=== PATIENT | male | born 1965 | race Caucasian/White ===

== ENCOUNTER → 2016-11-09 10:04 | Outpatient (CLI) | payer OTHER | END | disposition home or self-care (01) | LOC: D.RAD 10:04 | DX: Z02.71 Encounter for disability determination (principal) ==

== ENCOUNTER 2019-02-17 10:39 | Day surgery (SDC) | payer MEDICAID ==
[~2019-02-17] VITALS: Ht 185.4 cm; Wt 113.6 kg
--- NOTE | 2019-02-17 10:50 | NUR ---
PT'S PEDAL PULSES +2 AND EQUAL BILATERALLY. RIGHT PEDAL PULSE MARKED WITH INK AT THIS TIME.
--- NOTE | 2019-02-17 11:00 | NUR ---
PT'S RIGHT GREAT TOE SOAKED IN BETADINE AT THIS TIME.
[2019-02-17 11:06] LABS: BASOPHILS 0.3 % (0-2); EOSINOPHILS 3.7 % (0-7); HEMATOCRIT 46.1 % (42.0-54.0); HEMOGLOBIN 15.8 g/dL (13.5-17.5); IMMATURE GRANULOCYTES 0.2 % (0-5); LYMPHOCYTES 35.2 % (15-50); MCH 31.7 pg (26.0-34.0); MCHC 34.3 g/dL (31.0-37.0); MCV 92.6 fL (80.0-100.0); MEAN PLATELET VOLUME 10.8 fL (7.4-10.4); NEUTROPHILS 53.6 % (40-80); PLATELET COUNT 163 10x3/uL (130-400); RBC 4.98 10x6/uL (4.20-6.10)
[2019-02-17 11:30] LABS: ALBUMIN 3.7 g/dL (3.4-5.0); ALKALINE PHOSPHATASE 105 U/L (46-116); ALT (SGPT) 42 U/L (10-68); BILIRUBIN - TOTAL 0.28 mg/dL (0.2-1.3); CALC OSMOLALITY 276 mosm/kg (275-300); CALCIUM 8.9 mg/dL (8.5-10.1); CARBON DIOXIDE 21.4 mmol/L (21.0-32.0); CHLORIDE - SERUM 104 mmol/L (98-107); CREATININE - SERUM 0.9 mg/dL (0.6-1.3); GLUCOSE 90 mg/dL (74-106); POTASSIUM - SERUM 3.6 mmol/L (3.5-5.1); PROTEIN - SERUM 7.7 g/dL (6.4-8.2); SODIUM 139 mmol/L (136-145); UREA NITROGEN 10 mg/dL (7-18); eGFR NON AFRICAN AMERICAN > 90 mL/min (90-120)
--- NOTE | 2019-02-17 11:30 | NUR ---
WRAPPED PT'S RIGHT GREAT TOE WITH KERLIX. PT TOLERATED WELL.
--- NOTE | 2019-02-17 11:40 | NUR ---
SURGERY CONSENT FORMS SIGNED BY PATIENT AT THIS TIME.
[2019-02-17 13:36] VITALS: BP 164/94; Ht 185.4 cm; Wt 113.6 kg
--- NOTE | 2019-02-17 13:42 | NUR ---
TO OR VIA BED
[2019-02-17 15:26] VITALS: BP 151/93
--- NOTE | 2019-02-17 15:29 | NUR ---
BACK FROM PACU VIA BED.DRESSING RIGHT FOOT CLEAN AND DRY AND INTACT. DENIES PAIN AT PRESENT.CALL LIGHT IN REACH
[2019-02-17] MEDS ORDERED: HYDROCODON-ACE1 EA10 PO (17:09)
--- NOTE | 2019-02-17 17:18 | NUR ---
ATE SANDIWICH TRAY WITHOUT NAUSEA. STILL DENIES PAIN. DRESSING TO FOOT CLEAN AND DRY. IV DCD WITH CATH TIP INTACT. HAS VOIDED 400CC OF CONCENTRATED URINE IN URINAL. WANTS TO DC HOME
--- NOTE | 2019-02-17 17:30 | NUR ---
DISCHARGE INSTRUCTIONS,STATES UNDERSTANDING.
--- NOTE | 2019-02-17 17:44 | NUR ---
LEFT UNIT VIA WHEELCHAR FOR TRANSPORT HOME
--- NOTE | 2019-02-18 14:17 | OP ---
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 PROCEDURE: Completion of amputation of the MTP joint, right great toe. SURGEON: Nataliya Kern MD ANESTHESIA: General. INTRAOPERATIVE COMPLICATIONS: None. SUMMARY OF PATHOLOGIC FINDINGS: Consistent with the preoperative diagnosis, the patient had a very small skin bridge with a dusky hue of the distal phalanx. Furthermore, the proximal phalanx of the toe was comminuted into about 15 pieces. The wound was laden with grass and as per preoperative plan, the patient's toe was cut off at the MTP joint by disarticulation. OPERATIVE SUMMARY IN DETAIL: After obtaining the appropriate preoperative orthopedic surgery consent as well as anesthetic consultation, evaluation and clearance, the patient was brought to the operating room and placed on the operating table in supine position. After general laryngeal mask airway was administered, tourniquet was placed on the proximal aspect of the right lower extremity. Right lower extremity was prepped and draped in routine sterile fashion. The leg was elevated and exsanguinated, tourniquet inflated to 350 mmHg. A fishmouth incision was made of the residual skin. At this point, the small skin island was incised and the toe simply was disconnected at this point. Copious irrigation was done to remove all foreign body. Further removal of bone was done back to the MTP joint. Skin was then trimmed and again all foreign bodies were removed back to a very good healthy tissue. Wound was then closed with 4-0 Prolene in interrupted fashion. Sterile dressings were applied. Tourniquet was deflated. The patient was awakened, taken to the recovery room in stable condition. All final needle and sponge counts were correct. TRANSINT:[id number] Voice Confirmation ID: [id number] DOCUMENT ID: [id number] NATALIYA KERN MD at 1417 CC: [id number] DICTATION DATE: 02/17/19 1459 REPORTER: 02/17/19 1912 DIS IN 02/17/19 [facility] [address] [place] [address]
== END 2019-02-17 17:46 | disposition home or self-care (01) ==
LOC: OBSVTIME → D.OPS 10:39 → D.ER 10:39 → EDSTATUS 11:17 → D.MS 11:37 → OBSVTIME 11:37 → D.ER 11:37 → D.MS 17:46 → D.OPS 17:46 → D.MS 17:46
PROVIDERS: Emergency Medicine; ATTEND Orthopaedic Surgery
DX: S91.111A Laceration without foreign body of right great toe without damage to nail, initial encounter (principal); F17.200 Nicotine dependence, unspecified, uncomplicated

== ENCOUNTER 2019-02-22 12:00 | Inpatient (IN) | payer MEDICAID ==
[~2019-02-22] VITALS: Ht 185.4 cm; Wt 113.4 kg
[~2019-02-22 12:00] MED LIST: HYDROCODON-ACE1 EA10 PO
[2019-02-22 12:09] LABS: BASOPHILS 0.4 % (0-2); EOSINOPHILS 4.3 % (0-7); HEMATOCRIT 45.5 % (42.0-54.0); HEMOGLOBIN 15.6 g/dL (13.5-17.5); MCH 31.8 pg (26.0-34.0); MCHC 34.3 g/dL (31.0-37.0); MCV 92.7 fL (80.0-100.0); MEAN PLATELET VOLUME 9.9 fL (7.4-10.4); MONOCYTES 8.3 % (2-11); PLATELET COUNT 161 10x3/uL (130-400); RBC 4.91 10x6/uL (4.20-6.10); RDW 13.9 % (11.5-14.5); WBC 5.2 10x3/uL (4.8-10.8)
[2019-02-22 12:16] LABS: CALC OSMOLALITY 270 mosm/kg (275-300); CALCIUM 9.1 mg/dL (8.5-10.1); CARBON DIOXIDE 31.7 mmol/L (21.0-32.0); CHLORIDE - SERUM 99 mmol/L (98-107); CREATININE - SERUM 0.8 mg/dL (0.6-1.3); GLUCOSE 100 mg/dL (74-106); POTASSIUM - SERUM 4.8 mmol/L (3.5-5.1); SODIUM 136 mmol/L (136-145); UREA NITROGEN 10 mg/dL (7-18); eGFR NON AFRICAN AMERICAN > 90 mL/min (90-120)
[2019-02-22 14:17] VITALS: BP 168/103; BMI 33.0
--- NOTE | 2019-02-22 14:45 | NUR ---
PT ARRIVED TO FLOOR VIA STRETCHER. O2 81% ON RA. 2L NC APPLIED AND PT O2 WENT UP TO 95%. BP AND HR WNL. PT DROWSY BUT WAKES TO VERBAL STIMULI.
--- NOTE | 2019-02-22 15:41 | NUR ---
PATIENT FEET VERY DIRTY WELL HANDS AND FINGERNAILS
--- NOTE | 2019-02-22 16:45 | NUR ---
PT ARRIVED TO FLOOR VIA STRETCHER. O2 81% ON RA. 2L NC APPLIED AND PT O2 WENT UP TO 95%. BP AND HR WNL. PT DROWSY BUT WAKES TO VERBAL STIMULI. =
[2019-02-22 16:59] VITALS: BP 154/98; BMI 33.0
--- NOTE | 2019-02-22 17:30 | NUR ---
PT SITTING UP IN BED EATING SUPPER. PT URINATED 400ML INTO URINAL. DENIES ANY NEEDS AT THIS TIME. WILL CONT TO FOLLOW POC
--- NOTE | 2019-02-22 19:45 | NUR ---
RECEIVED PT. A&O X4. PROVIDED PAIN MEDICATION PER REQUEST. DENIES FURTHER NEEDS AT THIS TIME. NO S/S OF DISTRESS NOTED. WILL CPOC.
[2019-02-22 20:00] VITALS: BP 115/84
[2019-02-23] VITALS: BP 147/98
[2019-02-23 03:52] VITALS: BP 152/89
[2019-02-23 07:27] VITALS: BP 119/82
--- NOTE | 2019-02-23 08:00 | NUR ---
PT RESTING IN BED, VSS AND WNL. SHIFT ASSESSMENT PERFORMED. DENIES ANY NEEDS AT THIS TIME, CALL LIGHT WITHIN REACH, WILL CONT TO FOLLOW POC
[2019-02-23 11:54] VITALS: BP 132/85
--- NOTE | 2019-02-23 12:00 | NUR ---
PT RESTING IN BED, DENIES ANY NEEDS AT THIS TIME. WILL CONT TO FOLLOW POC
[2019-02-23 14:25] LABS: C-REACTIVE PROTEIN 3.5 mg/dL (0.0-0.9); CALC OSMOLALITY 268 mosm/kg (275-300); CALCIUM 8.9 mg/dL (8.5-10.1); CARBON DIOXIDE 32.9 mmol/L (21.0-32.0); CHLORIDE - SERUM 97 mmol/L (98-107); CREATININE - SERUM 0.9 mg/dL (0.6-1.3); GLUCOSE 75 mg/dL (74-106); POTASSIUM - SERUM 4.2 mmol/L (3.5-5.1); SODIUM 135 mmol/L (136-145); eGFR NON AFRICAN AMERICAN > 90 mL/min (90-120)
[2019-02-23 14:28] LABS: UREA NITROGEN 13 mg/dL (7-18)
[2019-02-23 15:17] LABS: ERYTHROCYTE SEDIMENTATION RATE 15 mm/hr (0-20)
[2019-02-23 15:18] LABS: HEMATOCRIT 45.4 % (42.0-54.0); HEMOGLOBIN 15.2 g/dL (13.5-17.5); MCH 31.3 pg (26.0-34.0); MCHC 33.5 g/dL (31.0-37.0); MCV 93.6 fL (80.0-100.0); MEAN PLATELET VOLUME 10.8 fL (7.4-10.4); PLATELET COUNT 176 10x3/uL (130-400); RBC 4.85 10x6/uL (4.20-6.10); RDW 13.7 % (11.5-14.5); WBC 5.1 10x3/uL (4.8-10.8)
--- NOTE | 2019-02-23 17:07 | MORECARE ---
CASE MANAGEMENT DISCHARGE SUMMARY PATIENT: SARAH BASSETT UNIT: [id number] ADM DATE: 02/22/19 AGE: 53 : 67 SEX: M ROOM/BED: D.1213 AUTHOR: FLOR VAZQUEZ PHYSICIAN: REFERRING PHYSICIAN: NATALIYA KERN MD DATE OF SERVICE: 02/23/19 Discharge Plan Patient Name: SARAH BASSETT [facility] [facility] 1965 Planned Disposition: Home with Home Health and Infusion Serv Anticipated Discharge Date: Discharge Date: Expected LOS: Initial Reviewer: [email or web address] Initial Review Date: 02/23/2019 Generated: 02/23/19 6:07 pm External Providers External Provider: OTHER-OTHER Next Contact Date: Service Request Date: Service Type: Resolution: Reviewer: Comments: External Provider: [facility] Next Contact Date: Service Request Date: Service Type: Resolution: Reviewer: Comments: Patient Name: SARAH BASSETT Page [phone] at 1707 All edits/amendments must be made on the electronic document DICTATION DATE: 02/23/191706 ZONING ADMINISTRATOR: DOMINGO 02/23/191706 RPT#: [id number] DC DATE: STATUS: ADM IN [facility] [address] [place] [address] END OF REPORT
[2019-02-23 17:13] VITALS: BP 116/80
--- NOTE | 2019-02-23 17:16 | MORECARE ---
CASE MANAGEMENT DISCHARGE SUMMARY PATIENT: SARAH BASSETT UNIT: [id number] ADM DATE: 02/22/19 AGE: 53 : 67 SEX: M ROOM/BED: D.1213 AUTHOR: FLOR VAZQUEZ PHYSICIAN: REFERRING PHYSICIAN: NATALIYA KERN MD DATE OF SERVICE: 02/23/19 Discharge Plan Patient Name: SARAH BASSETT [facility] [facility] 1965 Planned Disposition: Home with Home Health and Infusion Serv Anticipated Discharge Date: Discharge Date: Expected LOS: Initial Reviewer: [email or web address] Initial Review Date: 02/23/2019 Generated: 02/23/19 6:16 pm DCPIA - Discharge Planning Initial Assessment Updated by [email or web address]: Domonique Crocker on 02/23/19 5:08 pm * Is the patient Alert and Oriented? Yes * How many steps to enter\exit or inside your home? * PCP NO PCP * Pharmacy [facility] * Preadmission Environment Home Alone * ADLs Independent * Equipment Crutch * Other Equipment VITALIY , WALKER * List name and contact numbers for known caregivers / representatives who currently or will assist patient after discharge: ANMOL BASSETT - [employer] - [phone] * Verbal permission to speak to the caregivers and representatives has been obtained from the patient. Yes * Community resources currently utilized None * Additional services required to return to the preadmission environment? No * Can the patient safely return to the preadmission environment? Yes * Has this patient been hospitalized within the prior 30 days at any hospital? No Last DP export: 02/23/19 4:07 pm Patient Name: SARAH BASSETT Page 12836 at 1716 All edits/amendments must be made on the electronic document DICTATION DATE: 02/23/191714 CIGAR PACKER AND PICKER: DOMINGO 02/23/191714 RPT#: [id number] DC DATE: STATUS: ADM IN [facility] [address] [place] [address] END OF REPORT
--- NOTE | 2019-02-23 17:32 | MORECARE ---
CASE MANAGEMENT DISCHARGE SUMMARY PATIENT: SARAH BASSETT UNIT: [id number] ADM DATE: 02/22/19 AGE: 53 : 67 SEX: M ROOM/BED: D.1213 AUTHOR: GEORGE,DOC PHYSICIAN: REFERRING PHYSICIAN: NATALIYA KERN MD DATE OF SERVICE: 02/23/19 Discharge Plan Patient Name: SARAH BASSETT Facility: [facility]:[place] : 1965 Planned Disposition: Home with Home Health and Infusion Serv Anticipated Discharge Date: Discharge Date: Expected LOS: Initial Reviewer: [email or web address] Initial Review Date: 02/23/2019 Generated: 02/23/19 6:32 pm Comments DCP- Discharge Planning Updated by [email or web address]: Domonique Crocker on 02/23/19 4:[address] Patient Name: SARAH BASSETT Admission Status: Elective Accout number: [id number] Admission Date: 02-22-2019 : 1965 Admission Diagnosis: Attending: NATALIYA KERN Current LOS: 1 Anticipated DC Date: Planned Disposition: Home with Home Health and Infusion Serv Primary Insurance: [place] [employer]IVATE OPTIONS [employer] Discharge Planning Comments: CM met with patient at bedside after explaining CM role and obtaining verbal consent. Patient lives at home alone and plans to return to his neighbors home upon discharge. Patient feels this would be a safe discharge. CM discussed availability / needs of home health and medical equipment. Patient states he has crutches in his truck and a walker in garage. Patient stated he lives in his shop that is why he will be staying at neighbors home because of cleanliness. Patient states his neighbors address of [address] [place] [address] in [place]. CM explained that he will have IV antibiotics at home and home health will be coming for dressing changes. CM gave patient [employer] form for and [employer]. CM contacted [facility] [phone] fax [phone] and they contacted CM and stated zero copay for antibiotics. Patient is contacting family on decision for Home Health. [employer] left with patient. [place] will coming to see patient later for teaching. CM has faxed information to [employer]. CM will continue to follow and assist as needed with discharge planning / needs. Office Manager: Domonique Crocker DCPIA - Discharge Planning Initial Assessment Updated by [email or web address]: Domonique Crocker on 02/23/19 5:08 pm * Is the patient Alert and Oriented? Yes * How many steps to enter\exit or inside your home? * PCP NO PCP * Pharmacy [facility] * Preadmission Environment Home Alone * ADLs Independent * Equipment Crutch * Other Equipment VITALIY , WALKER * List name and contact numbers for known caregivers / representatives who currently or will assist patient after discharge: ANMOL BASSETT - [facility] [phone] * Verbal permission to speak to the caregivers and representatives has been obtained from the patient. Yes * Community resources currently utilized None * Additional services required to return to the preadmission environment? No * Can the patient safely return to the preadmission environment? Yes * Has this patient been hospitalized within the prior 30 days at any hospital? No Last DP export: 02/23/19 4:16 pm Patient Name: SARAH BASSETT Page 67711 at 1732 All edits/amendments must be made on the electronic document DICTATION DATE: 02/23/191731 REGIONAL VICE PRESIDENT SURGICAL SALES: DOMINGO 02/23/191731 RPT#: [id number] [place] DATE: STATUS: ADM IN [facility] [address] [place] [address] END OF REPORT
--- NOTE | 2019-02-23 18:17 | NUR ---
PT RESTING IN BED, DENIES ANY NEEDS AT THIS TIME, WILL CONT TO FOLLOW POC
[2019-02-23 20:01] VITALS: BP 149/69
[2019-02-24] VITALS (7 sets, daily range): BP systolic 108–162; BP diastolic 70–103
--- NOTE | 2019-02-24 07:38 | NUR ---
PT RESTING IN BED. BROUGHT PT COFFEE PER REQUEST. NO S/S OF ACUTE DISTRESS. CL IN PLACE.
[2019-02-24 09:01] LABS: BASOPHILS 0.4 % (0-2); HEMATOCRIT 45.7 % (42.0-54.0); HEMOGLOBIN 15.2 g/dL (13.5-17.5); IMMATURE GRANULOCYTES 0.2 % (0-5); LYMPHOCYTES 29.6 % (15-50); MCHC 33.3 g/dL (31.0-37.0); MCV 93.3 fL (80.0-100.0); MEAN PLATELET VOLUME 10.5 fL (7.4-10.4); MONOCYTES 13.5 % (2-11); NEUTROPHILS 52.3 % (40-80); PLATELET COUNT 170 10x3/uL (130-400); WBC 5.2 10x3/uL (4.8-10.8)
[2019-02-24 09:19] LABS: ALBUMIN 3.1 g/dL (3.4-5.0); ALKALINE PHOSPHATASE 82 U/L (46-116); ALT (SGPT) 31 U/L (10-68); BILIRUBIN - TOTAL 0.43 mg/dL (0.2-1.3); C-REACTIVE PROTEIN 3.2 mg/dL (0.0-0.9); CALC OSMOLALITY 264 mosm/kg (275-300); CALCIUM 8.8 mg/dL (8.5-10.1); CARBON DIOXIDE 30.7 mmol/L (21.0-32.0); CHLORIDE - SERUM 98 mmol/L (98-107); CREATININE - SERUM 0.9 mg/dL (0.6-1.3); GLUCOSE 101 mg/dL (74-106); POTASSIUM - SERUM 4.4 mmol/L (3.5-5.1); PROTEIN - SERUM 7.3 g/dL (6.4-8.2); SODIUM 133 mmol/L (136-145); UREA NITROGEN 11 mg/dL (7-18); eGFR NON AFRICAN AMERICAN > 90 mL/min (90-120)
[2019-02-24 10:46] LABS: ERYTHROCYTE SEDIMENTATION RATE 25 mm/hr (0-20)
--- NOTE | 2019-02-24 11:12 | NUR ---
PT "DID NOT LIKE THE WAY THE NICOTINE PATCH FELT. I WANT IT OFF." DISPOSED OF PATCH.
--- NOTE | 2019-02-24 12:39 | NUR ---
CHANGED DRESSING TO R FOOT GT TOE PER MD ORDERS. ADMINISTERED OXY 10MG FOR PAIN FOLLOWING DUE TO PAIN 04/26. NO S/S OF ACUTE DISTRESS. CL IN PLACE.
--- NOTE | 2019-02-24 18:28 | NUR ---
PT RESTING WITH EYES CLOSED. REFUSED TO PUT BOOT ON AND USE TOILET. ENCOURAGED WITHOUT SUCCESS. URINAL AT BEDSIDE. BUDLIGHT ON NIGHT TABLE FROM DINNER. NO S/S OF ACUTE DISTRESS. CL IN PLACE.
--- NOTE | 2019-02-24 19:38 | NUR ---
ASSUMED PT CARE. IN BED. VOICES NO C/O OR CONCERNS AT THIS TIME. RR EVEN AND UNLABORED. NO S/S OF DISTRESS NOTED. WILL CPOC.
[2019-02-25 05:27] VITALS: BP 141/97
[2019-02-25 06:57] LABS: BASOPHILS 0.4 % (0-2); EOSINOPHILS 4.3 % (0-7); MCH 31.2 pg (26.0-34.0); MCHC 33.3 g/dL (31.0-37.0); MCV 93.6 fL (80.0-100.0); MEAN PLATELET VOLUME 10.3 fL (7.4-10.4); MONOCYTES 9.1 % (2-11); NEUTROPHILS 62.2 % (40-80); PLATELET COUNT 178 10x3/uL (130-400); RBC 5.13 10x6/uL (4.20-6.10); WBC 5.6 10x3/uL (4.8-10.8)
[2019-02-25 07:09] LABS: ALKALINE PHOSPHATASE 85 U/L (46-116); ALT (SGPT) 28 U/L (10-68); BILIRUBIN - TOTAL 0.37 mg/dL (0.2-1.3); CALC OSMOLALITY 267 mosm/kg (275-300); CARBON DIOXIDE 29.8 mmol/L (21.0-32.0); CHLORIDE - SERUM 100 mmol/L (98-107); CREATININE - SERUM 0.8 mg/dL (0.6-1.3); GLUCOSE 120 mg/dL (74-106); POTASSIUM - SERUM 4.5 mmol/L (3.5-5.1); PROTEIN - SERUM 7.4 g/dL (6.4-8.2); SODIUM 134 mmol/L (136-145); UREA NITROGEN 11 mg/dL (7-18); eGFR NON AFRICAN AMERICAN > 90 mL/min (90-120)
[2019-02-25 07:27] VITALS: BP 146/96
--- NOTE | 2019-02-25 07:45 | NUR ---
PT RESTING IN BED, VSS AND WNL. SHIFT ASSESSMENT PERFORMED. DENIES ANY NEEDS AT THIS TIME. WILL CONT TO FOLLOW POC
--- NOTE | 2019-02-25 11:58 | NUR ---
PT RESTING IN BED, DENIES ANY NEEDS AT THIS TIME, WILL CONT TO FOLLOW POC
[2019-02-25 12:12] VITALS: BP 146/90
--- NOTE | 2019-02-25 16:28 | MORECARE ---
CASE MANAGEMENT DISCHARGE SUMMARY PATIENT: SARAH BASSETT UNIT: [id number] ADM DATE: 02/22/19 AGE: 53 : 67 SEX: M ROOM/BED: D.1213 AUTHOR: GEORGE,DOC PHYSICIAN: REFERRING PHYSICIAN: NATALIYA KERN MD DATE OF SERVICE: 02/25/19 Discharge Plan Patient Name: SARAH BASSETT Facility: [facility]:[place] : 1965 Planned Disposition: Home with Home Health and Infusion Serv Anticipated Discharge Date: Discharge Date: Expected LOS: Initial Reviewer: [email or web address] Initial Review Date: 02/23/2019 Generated: 02/25/19 5:28 pm Comments DCP- Discharge Planning Updated by [email or web address]: Emily Ivan on 02/25/19 3:[address] Have attempted to see patient in regards to HHS, but he is not in his room. Patient will require a mid-line prior to discharge and also if MD is planning to dc on Invanz, will require first dose prior to discharge. Emily Ivan RN CM DCP- Discharge Planning Updated by [id number]: Domonique Crocker on 02/23/19 4:[address] Patient Name: SARAH BASSETT Admission Status: Elective Accout number: [id number] Admission Date: 02-22-2019 : 1965 Admission Diagnosis: Attending: NATALIYA KERN Current LOS: 1 Anticipated DC Date: Planned Disposition: Home with Home Health and Infusion Serv Primary Insurance: [facility] PRIVATE OPTIONS [facility] Discharge Planning Comments: CM met with patient at bedside after explaining CM role and obtaining verbal consent. Patient lives at home alone and plans to return to his neighbors home upon discharge. Patient feels this would be a safe discharge. CM discussed availability / needs of home health and medical equipment. Patient states he has crutches in his truck and a walker in garage. Patient stated he lives in his shop that is why he will be staying at neighbors home because of cleanliness. Patient states his neighbors address of [address] [place] [address] in [place]. CM explained that he will have IV antibiotics at home and home health will be coming for dressing changes. CM gave patient [employer] form for and [employer]. CM contacted [facility] [phone] fax [phone] and they contacted CM and stated zero copay for antibiotics. Patient is contacting family on decision for Home Health. [facility] left with patient. [place] will coming to see patient later for teaching. CM has faxed information to [employer]. CM will continue to follow and assist as needed with discharge planning / needs. Search Marketing Coordinator: Domonique Crocker DCPIA - Discharge Planning Initial Assessment Updated by [email or web address]: Domonique Crocker on 02/23/19 5:08 pm * Is the patient Alert and Oriented? Yes * How many steps to enter\exit or inside your home? * PCP NO PCP * Pharmacy [facility] * Preadmission Environment Home Alone * ADLs Independent * Equipment Crutch * Other Equipment ZOEY BURKS * List name and contact numbers for known caregivers / representatives who currently or will assist patient after discharge: ANMOL BASSETT - [employer] - [phone] * Verbal permission to speak to the caregivers and representatives has been obtained from the patient. Yes * Community resources currently utilized None * Additional services required to return to the preadmission environment? No * Can the patient safely return to the preadmission environment? Yes * Has this patient been hospitalized within the prior 30 days at any hospital? No Last DP export: 02/23/19 4:32 pm Patient Name: SARAH BASSETT Page [phone] at 1628 All edits/amendments must be made on the electronic document DICTATION DATE: 02/25/191626 PLATFORM MAN: DOMINGO 02/25/191626 RPT#: [id number] DC DATE: STATUS: ADM IN [facility] [address] [place] [address] END OF REPORT
--- NOTE | 2019-02-25 16:30 | NUR ---
WOUND CARE PROVIDED TO PT RIGHT TOE AMPUTATION ORDERED. PT TOLERATED WELL.
--- NOTE | 2019-02-25 16:56 | NUR ---
PT SITTING UP IN BED EATING DINNER, DENIES ANY NEEDS AT THIS TIME. WILL CONT TO FOLLOW POC
--- NOTE | 2019-02-25 19:25 | NUR ---
PT IS ALERT AND [employer] ASKED FOR BOOT TO BE REMOVED I DID AND REMINDED HIM HE NEEDED IT ON WHEN HE GETS UP. ASSISTANCE WITH COMFORT AT THIS TIME DRSG TO FOOT INTACT BED LOW AND LOCKED AND CALL LIGHT IS IN REACH. PT DID CO OF PAIN AND MED WILL BE GIVEN
[2019-02-25 19:51] VITALS: BP 127/80
--- NOTE | 2019-02-26 00:34 | NUR ---
I have reviewed this patient and I concur with the Shift Assessment completed by the Licensed Practical Nurse today this shift.
[2019-02-26 00:57] VITALS: BP 132/72
[2019-02-26 04:16] VITALS: BP 149/91
[2019-02-26 06:15] LABS: BASOPHILS 0.4 % (0-2); EOSINOPHILS 4.4 % (0-7); HEMATOCRIT 45.4 % (42.0-54.0); HEMOGLOBIN 15.3 g/dL (13.5-17.5); IMMATURE GRANULOCYTES 0.2 % (0-5); LYMPHOCYTES 34.3 % (15-50); MCH 31.3 pg (26.0-34.0); MCHC 33.7 g/dL (31.0-37.0); MCV 92.8 fL (80.0-100.0); MEAN PLATELET VOLUME 10.6 fL (7.4-10.4); MONOCYTES 9.8 % (2-11); NEUTROPHILS 50.9 % (40-80); PLATELET COUNT 181 10x3/uL (130-400); RBC 4.89 10x6/uL (4.20-6.10); RDW 13.9 % (11.5-14.5)
[2019-02-26 06:52] LABS: ALBUMIN 2.8 g/dL (3.4-5.0); ALKALINE PHOSPHATASE 81 U/L (46-116); ALT (SGPT) 29 U/L (10-68); BILIRUBIN - TOTAL 0.27 mg/dL (0.2-1.3); CALC OSMOLALITY 270 mosm/kg (275-300); CALCIUM 8.7 mg/dL (8.5-10.1); CARBON DIOXIDE 29.3 mmol/L (21.0-32.0); CHLORIDE - SERUM 103 mmol/L (98-107); CREATININE - SERUM 0.8 mg/dL (0.6-1.3); GLUCOSE 113 mg/dL (74-106); POTASSIUM - SERUM 4.4 mmol/L (3.5-5.1); PROTEIN - SERUM 6.9 g/dL (6.4-8.2); SODIUM 135 mmol/L (136-145); UREA NITROGEN 13 mg/dL (7-18); eGFR NON AFRICAN AMERICAN > 90 mL/min (90-120)
[2019-02-26 07:41] VITALS: BP 150/109
--- NOTE | 2019-02-26 07:45 | NUR ---
PT RESTING IN BED, URINALS DUMPED REQUESTED. SHIFT ASSESSMENT PERFORMED. VSS AND WNL. DENIES ANY NEEDS AT THIS TIME, WILL CONT TO FOLLOW POC
[2019-02-26] MEDS ORDERED: HYDROCODON-ACE1 EA10 PO (07:59)
[2019-02-26 10:13] VITALS: BP 164/94
--- NOTE | 2019-02-26 11:47 | MORECARE ---
CASE MANAGEMENT DISCHARGE SUMMARY PATIENT: SARAH BASSETT UNIT: [id number] ADM DATE: 02/22/19 AGE: 53 : 67 SEX: M ROOM/BED: D.1213 AUTHOR: GEORGE,DOC PHYSICIAN: REFERRING PHYSICIAN: NATALIYA KERN MD DATE OF SERVICE: 02/26/19 Discharge Plan Patient Name: SARAH BASSETT Facility: [facility]:[place] : 1965 Planned Disposition: Home with Home Health and Infusion Serv Anticipated Discharge Date: Discharge Date: Expected LOS: Initial Reviewer: [email or web address] Initial Review Date: 02/23/2019 Generated: 02/26/19 12:47 pm Comments DCP- Discharge Planning Updated by [email or web address]: Emily Ivan on 02/25/19 3:[address] Have attempted to see patient in regards to HHS, but he is not in his room. Patient will require a mid-line prior to discharge and also if MD is planning to dc on Invanz, will require first dose prior to discharge. Emily Ivan RN CM DCP- Discharge Planning Updated by [email or web address]: Domonique Crocker on 02/23/19 4:[address] Patient Name: SARAH BASSETT Admission Status: Elective Accout number: [id number] Admission Date: 02-22-2019 : 1965 Admission Diagnosis: Attending: NATALIYA KERN Current LOS: 1 Anticipated DC Date: Planned Disposition: Home with Home Health and Infusion Serv Primary Insurance: [facility] PRIVATE OPTIONS [facility] Discharge Planning Comments: CM met with patient at bedside after explaining CM role and obtaining verbal consent. Patient lives at home alone and plans to return to his neighbors home upon discharge. Patient feels this would be a safe discharge. CM discussed availability / needs of home health and medical equipment. Patient states he has crutches in his truck and a walker in garage. Patient stated he lives in his shop that is why he will be staying at neighbors home because of cleanliness. Patient states his neighbors address of [address] [place] [address] in [place]. CM explained that he will have IV antibiotics at home and home health will be coming for dressing changes. CM gave patient [employer] form for and [employer]. CM contacted [facility] [phone] fax [phone] and they contacted CM and stated zero copay for antibiotics. Patient is contacting family on decision for Home Health. [facility] left with patient. [place] will coming to see patient later for teaching. CM has faxed information to [employer]. CM will continue to follow and assist as needed with discharge planning / needs. Speech Language Pathologist Prn: Domonique Crocker DCPIA - Discharge Planning Initial Assessment Updated by [email or web address]: Domonique Crocker on 02/23/19 5:08 pm * Is the patient Alert and Oriented? Yes * How many steps to enter\exit or inside your home? * PCP NO PCP * Pharmacy [facility] * Preadmission Environment Home Alone * ADLs Independent * Equipment Crutch * Other Equipment ZOEY BURKS * List name and contact numbers for known caregivers / representatives who currently or will assist patient after discharge: ANMOL BASSETT - [id number] - [phone] * Verbal permission to speak to the caregivers and representatives has been obtained from the patient. Yes * Community resources currently utilized None * Additional services required to return to the preadmission environment? No * Can the patient safely return to the preadmission environment? Yes * Has this patient been hospitalized within the prior 30 days at any hospital? No External Providers External Provider: OTHER-OTHER Next Contact Date: Service Request Date: Service Type: Resolution: Reviewer: Comments: External Provider: [facility] Next Contact Date: Service Request Date: Service Type: Resolution: Reviewer: Comments: Last DP export: 02/25/19 3:28 p Patient Name: SARAH BASSETT Page 81029 at 1147 All edits/amendments must be made on the electronic document DICTATION DATE: 02/26/19 1146 CAREER REPRESENTATIVE: DOMINGO 02/26/19 1146 RPT#: [id number] [place] DATE: STATUS: ADM IN [facility] [address] [place] [address] END OF REPORT
--- NOTE | 2019-02-26 11:55 | MORECARE ---
CASE MANAGEMENT DISCHARGE SUMMARY PATIENT: SARAH BASSETT UNIT: [id number] ADM DATE: 02/22/19 AGE: 53 : 67 SEX: M ROOM/BED: D.1213 AUTHOR: GEORGE,DOC PHYSICIAN: REFERRING PHYSICIAN: NATALIYA KERN MD DATE OF SERVICE: 02/26/19 Discharge Plan Patient Name: SARAH BASSETT Facility: [facility]:[place] : 1965 Planned Disposition: Home with Home Health and Infusion Serv Anticipated Discharge Date: Discharge Date: Expected LOS: Initial Reviewer: [email or web address] Initial Review Date: 02/23/2019 Generated: 02/26/19 12:54 pm Comments DCP- Discharge Planning Updated by [email or web address]: Emily Ivan on 02/25/19 3:[address] Have attempted to see patient in regards to HHS, but he is not in his room. Patient will require a mid-line prior to discharge and also if MD is planning to dc on Invanz, will require first dose prior to discharge. Emily Ivan RN CM DCP- Discharge Planning Updated by [email or web address]: Domonique Crocker on 02/23/19 4:[address] Patient Name: SARAH BASSETT Admission Status: Elective Accout number: [id number] Admission Date: 02-22-2019 : 1965 Admission Diagnosis: Attending: NATALIYA KERN Current LOS: 1 Anticipated DC Date: Planned Disposition: Home with Home Health and Infusion Serv Primary Insurance: [facility] [employer] [facility] Discharge Planning Comments: CM met with patient at bedside after explaining CM role and obtaining verbal consent. Patient lives at home alone and plans to return to his neighbors home upon discharge. Patient feels this would be a safe discharge. CM discussed availability / needs of home health and medical equipment. Patient states he has crutches in his truck and a walker in garage. Patient stated he lives in his shop that is why he will be staying at neighbors home because of cleanliness. Patient states his neighbors address of [address] [place] [address] in [place]. CM explained that he will have IV antibiotics at home and home health will be coming for dressing changes. CM gave patient [facility] form for and [facility]. CM contacted [facility] [phone] fax [phone] and they contacted CM and stated zero copay for antibiotics. Patient is contacting family on decision for Home Health. [facility] left with patient. [facility] will coming to see patient later for teaching. CM has faxed information to [facility]. CM will continue to follow and assist as needed with discharge planning / needs. Industrial Editor: Domonique Crocker DCPIA - Discharge Planning Initial Assessment Updated by [email or web address]: Domonique Crocker on 02/23/19 5:08 pm * Is the patient Alert and Oriented? Yes * How many steps to enter\exit or inside your home? * PCP NO PCP * Pharmacy [facility] * Preadmission Environment Home Alone * ADLs Independent * Equipment Crutch * Other Equipment ZOEY BURKS * List name and contact numbers for known caregivers / representatives who currently or will assist patient after discharge: ANMOL BASSETT - [id number] - [phone] * Verbal permission to speak to the caregivers and representatives has been obtained from the patient. Yes * Community resources currently utilized None * Additional services required to return to the preadmission environment? No * Can the patient safely return to the preadmission environment? Yes * Has this patient been hospitalized within the prior 30 days at any hospital? No External Providers External Provider: OTHER-OTHER Next Contact Date: Service Request Date: Service Type: Resolution: Reviewer: Comments: Last DP export: 02/26/19 10:47 a Patient Name: SARAH BASSETT Page [phone] at 1155 All edits/amendments must be made on the electronic document DICTATION DATE: 02/26/19 1154 MANAGER EMPLOYMENT: DOMINGO 02/26/19 1154 RPT#: [id number] DC DATE: STATUS: ADM IN [facility] [address] [place] [address] END OF REPORT
--- NOTE | 2019-02-26 12:09 | MORECARE ---
CASE MANAGEMENT DISCHARGE SUMMARY PATIENT: SARAH BASSETT UNIT: [id number] ADM DATE: 02/22/19 AGE: 53 : 67 SEX: M ROOM/BED: D.1213 AUTHOR: GEORGE,DOC PHYSICIAN: REFERRING PHYSICIAN: NATALIYA KERN MD DATE OF SERVICE: 02/26/19 Discharge Plan Patient Name: SARAH BASSETT Facility: [facility]:[place] : 1965 Planned Disposition: Home with Home Health and Infusion Serv Anticipated Discharge Date: Discharge Date: Expected LOS: Initial Reviewer: [id number] Initial Review Date: 02/23/2019 Generated: 02/26/19 1:09 pm Comments DCP- Discharge Planning Updated by [email or web address]: Domonique Crocker on 02/26/19 11:[address] [facility] signed for HH [facility] choice [facility]. CM contacted [facility] and they are not available to accept a new patient until Tuesday. CM contacted [facility] and they will be able to admit patient tomorrow but will need to run insurance before they can accept patient. CM awaiting on determination of HH and insurance auth. [facility] will be bringing patients IV medication and supplies to [address] [place] [address] this is where the patient is planning on staying until he recovers while getting HH and IV antibiotics. CM has faxed all records to both [facility] and [facility]. CM will continue to follow and assist as needed for discharge planning / needs. DCP- Discharge Planning Updated by [email or web address]: Emily Ivan on 02/25/19 3:[address] Have attempted to see patient in regards to HHS, but he is not in his room. Patient will require a mid-line prior to discharge and also if MD is planning to dc on Invanz, will require first dose prior to discharge. Emily Ivan RN, CM DCP- Discharge Planning Updated by [email or web address]: Domonique Crocker on 02/23/19 4:[address] Patient Name: SARAH BASSETT Admission Status: Elective Accout number: [id number] Admission Date: 02-22-2019 : 1965 Admission Diagnosis: Attending: NATALIYA KERN Current LOS: 1 Anticipated DC Date: Planned Disposition: Home with Home Health and Infusion Serv Primary Insurance: [facility] PRIVATE OPTIONS [facility] Discharge Planning Comments: CM met with patient at bedside after explaining CM role and obtaining verbal consent. Patient lives at home alone and plans to return to his neighbors home upon discharge. Patient feels this would be a safe discharge. CM discussed availability / needs of home health and medical equipment. Patient states he has crutches in his truck and a walker in garage. Patient stated he lives in his shop that is why he will be staying at neighbors home because of cleanliness. Patient states his neighbors address of [address] [place] [address] in [place]. CM explained that he will have IV antibiotics at home and home health will be coming for dressing changes. CM gave patient [facility] form for and [employer]. CM contacted [facility] [phone] fax [phone] and they contacted CM and stated zero copay for antibiotics. Patient is contacting family on decision for Home Health. [facility] left with patient. [facility] will coming to see patient later for teaching. CM has faxed information to [facility]. CM will continue to follow and assist as needed with discharge planning / needs. Mud Analysis Well Logging Operator: Domonique Crocker [facility] - Discharge Planning Initial Assessment Updated by [email or web address]: Domonique Crocker on 02/23/19 5:08 pm * Is the patient Alert and Oriented? Yes * How many steps to enter\exit or inside your home? * PCP NO PCP * Pharmacy [facility] * Preadmission Environment Home Alone * ADLs Independent * Equipment Crutch * Other Equipment CRUTHES , WALKER * List name and contact numbers for known caregivers / representatives who currently or will assist patient after discharge: ANMOL BASSETT - [id number] - [phone] * Verbal permission to speak to the caregivers and representatives has been obtained from the patient. Yes * Community resources currently utilized None * Additional services required to return to the preadmission environment? No * Can the patient safely return to the preadmission environment? Yes * Has this patient been hospitalized within the prior 30 days at any hospital? No Last DP export: 02/26/19 10:55 a Patient Name: SARAH BASSETT Page [phone] Electronically Signed by [facility] on 02/26/19 at 1209 All edits/amendments must be made on the electronic document DICTATION DATE: 02/26/191208 EEG TECHNOLOGIST: DOMINGO 02/26/191208 RPT#: [id number] DC DATE: STATUS: ADM IN [facility] [address] [place] [address] END OF REPORT
[2019-02-26 12:48] VITALS: Ht 185.4 cm; Wt 113.4 kg
--- NOTE | 2019-02-26 12:53 | MORECARE ---
CASE MANAGEMENT DISCHARGE SUMMARY PATIENT: SARAH BASSETT UNIT: [id number] ADM DATE: 02/22/19 AGE: 53 : 67 SEX: M ROOM/BED: D.1213 AUTHOR: GEORGE,DOC PHYSICIAN: REFERRING PHYSICIAN: NATALIYA KERN MD DATE OF SERVICE: 02/26/19 Discharge Plan Patient Name: SARAH BASSETT Facility: [facility]:[place] : 1965 Planned Disposition: Home with Home Health and Infusion Serv Anticipated Discharge Date: Discharge Date: Expected LOS: Initial Reviewer: [email or web address] Initial Review Date: 02/23/2019 Generated: 02/26/19 1:53 pm Comments DCP- Discharge Planning Updated by [email or web address]: Domonique Crocker on 02/26/19 11:[address] [facility]ABIA signed for HH #1 choice was [facility]. CM contacted [facility] and they are not available to accept a new patient until Tuesday. CM contacted [facility] and they will be able to admit patient tomorrow but will need to run insurance before they can accept patient. CM awaiting on determination of HH and insurance auth. [facility] will be bringing patients IV medication and supplies to [address] [place] [address] this is where the patient is planning on staying until he recovers while getting HH and IV antibiotics. has faxed all records to both [facility] and [facility]. will continue to follow and assist as needed for discharge planning / needs. Appended by Domonique Crocker on 02/26/2019 12:49 CDT: Noelle with [facility] called back and stated that the patient has been accepted and will be out to see him tomorrow verified phone and address again with patient. [facility] updated on HH company and address where patient will be staying. DCP- Discharge Planning Updated by [email or web address]: Emily Ivan on 02/25/19 3:[address] Have attempted to see patient in regards to HHS, but he is not in his room. Patient will require a mid-line prior to discharge and also if MD is planning to dc on Invanz, will require first dose prior to discharge. Emily Ivan RN DCP- Discharge Planning Updated by [email or web address]: Domonique Crocker on 02/23/19 4:[address] Patient Name: SARAH BASSETT Admission Status: Elective Accout number: [id number] Admission Date: 02-22-2019 : 1965 Admission Diagnosis: Attending: NATALIYA KERN Current LOS: 1 Anticipated DC Date: Planned Disposition: Home with Home Health and Infusion Serv Primary Insurance: [facility] PRIVATE OPTIONS [facility] Discharge Planning Comments: CM met with patient at bedside after explaining CM role and obtaining verbal consent. Patient lives at home alone and plans to return to his neighbors home upon discharge. Patient feels this would be a safe discharge. CM discussed availability / needs of home health and medical equipment. Patient states he has crutches in his truck and a walker in garage. Patient stated he lives in his shop that is why he will be staying at neighbors home because of cleanliness. Patient states his neighbors address of [address] [place] [address] in [place]. CM explained that he will have IV antibiotics at home and home health will be coming for dressing changes. CM gave patient RAB[facility] form for and [facility]. CM contacted [facility] [phone] fax [phone] and they contacted CM and stated zero copay for antibiotics. Patient is contacting family on decision for Home Health. [facility] left with patient. [facility] will coming to see patient later for teaching. CM has faxed information to [facility]. CM will continue to follow and assist as needed with discharge planning / needs. Economic Developer: Domonique Crocker DCPIA - Discharge Planning Initial Assessment Updated by [email or web address]: Domonique Crocker on 02/23/19 5:08 pm * Is the patient Alert and Oriented? Yes * How many steps to enter\exit or inside your home? * PCP NO PCP * Pharmacy [facility] * Preadmission Environment Home Alone * ADLs Independent * Equipment Crutch * Other Equipment CRUTHES , WALKER * List name and contact numbers for known caregivers / representatives who currently or will assist patient after discharge: ANMOL BASSETT - [id number] - [phone] * Verbal permission to speak to the caregivers and representatives has been obtained from the patient. Yes * Community resources currently utilized None * Additional services required to return to the preadmission environment? No * Can the patient safely return to the preadmission environment? Yes * Has this patient been hospitalized within the prior 30 days at any hospital? No Coverage Notice Reviewer: [id number] Bj Crocker Notice Issued Date-Time: 02/26/2019 11:28 Notice Type: Patient Choice Letter Notice Delivered To: Patient Relationship to Patient: Self Log Loader Helper Name: Delivery Method: HAND - Hand Delivered Daisha Days: Prior Verbal Notification: Recipient Understood Notice: Yes Recipient Signature: Yes Med Rec Note Co-signed by Attending: Coverage Notice Comment: [facility] for HH and IV infusion company Last DP export: 02/26/19 11:09 a Patient Name: SARAH BASSETT Page 51218 at 1253 All edits/amendments must be made on the electronic document DICTATION DATE: 02/26/19 1253 SPECIAL ED ASSISTANT: DOMINGO 02/26/19 1253 RPT#: [id number] DC DATE: STATUS: ADM IN [facility] [address] [place] [address] END OF REPORT
--- NOTE | 2019-02-26 13:04 | NUR ---
DISCHARGE INSTRUCTIONS REVIEWED WITH PT AND ALL QUESTIONS ANSWERED. PIV REMOVED WITH CATHETER TIP INTACT. WOUND CARE PROVIDED TO RIGHT FOOT. PT TOLERATED WELL. PT ASSISTED TO FRONT OF HOSPITAL VIA WHEELCHAIR.
--- NOTE | 2019-02-26 20:19 | MORECARE ---
CASE MANAGEMENT DISCHARGE SUMMARY PATIENT: SARAH BASSETT UNIT: [id number] ADM DATE: 02/22/19 AGE: 53 : 67 SEX: M ROOM/BED: D.1213 AUTHOR: GEORGE,DOC PHYSICIAN: REFERRING PHYSICIAN: NATALIYA KERN MD DATE OF SERVICE: 02/26/19 Discharge Plan Patient Name: SARAH BASSETT Facility: [facility]:[place] : 1965 Planned Disposition: Home with Home Health and Infusion Serv Anticipated Discharge Date: Discharge Date: 02/26/2019 Expected LOS: Initial Reviewer: [email or web address] Initial Review Date: 02/23/2019 Generated: 02/26/19 9:19 pm Comments DCP- Discharge Planning Updated by [email or web address]: Domonique Crocker on 02/26/19 11:[address] RABIA signed for HH #[facility] choice [facility] then [facility]. CM contacted [facility] and they are not available to accept a new patient until Tuesday. CM contacted [facility] and they will be able to admit patient tomorrow but will need to run insurance before they can accept patient. CM awaiting on determination of and insurance auth. [facility] will be bringing patients IV medication and supplies to [address] [place] [address] this is where the patient is planning on staying until he recovers while getting HH and IV antibiotics. has faxed all records to both [facility] and [facility]. will continue to follow and assist as needed for discharge planning / needs. Appended by Domonique Crocker on 02/26/2019 12:49 CDT: Noelle with [facility] called back and stated that the patient has been accepted and will be out to see him tomorrow verified phone and address again with patient. [facility] updated on HH company and address where patient will be staying. DCP- Discharge Planning Updated by [email or web address]: Emily Ivan on 02/25/19 3:[address] Have attempted to see patient in regards to HHS, but he is not in his room. Patient will require a mid-line prior to discharge and also if MD is planning to dc on Invanz, will require first dose prior to discharge. Emily Ivan RN CM DCP- Discharge Planning Updated by [email or web address]: Domonique Crocker on 02/23/19 4:[address] Patient Name: SARAH BASSETT Admission Status: Elective Accout number: [id number] Admission Date: 02-22-2019 : 1965 Admission Diagnosis: Attending: NATALIYA KERN Current LOS: 1 Anticipated DC Date: Planned Disposition: Home with Home Health and Infusion Serv Primary Insurance: [facility] PRIVATE OPTIONS [facility] Discharge Planning Comments: CM met with patient at bedside after explaining CM role and obtaining verbal consent. Patient lives at home alone and plans to return to his neighbors home upon discharge. Patient feels this would be a safe discharge. CM discussed availability / needs of home health and medical equipment. Patient states he has crutches in his truck and a walker in garage. Patient stated he lives in his shop that is why he will be staying at neighbors home because of cleanliness. Patient states his neighbors address of [address] [place] [address] in [place]. CM explained that he will have IV antibiotics at home and home health will be coming for dressing changes. CM gave patient RABIA form for and infusion [employer]. CM contacted [facility] [phone] fax [phone] and they contacted CM and stated zero copay for antibiotics. Patient is contacting family on decision for Home Health. [facility] left with patient. [facility] will coming to see patient later for teaching. CM has faxed information to [facility]. CM will continue to follow and assist as needed with discharge planning / needs. Produce Department Manager: Domonique Crocker DCPIA - Discharge Planning Initial Assessment Updated by [email or web address]: Domonique Crocker on 02/23/19 5:08 pm * Is the patient Alert and Oriented? Yes * How many steps to enter\exit or inside your home? * PCP NO PCP * Pharmacy [facility] * Preadmission Environment Home Alone * ADLs Independent * Equipment Crutch * Other Equipment CRUTHES , WALKER * List name and contact numbers for known caregivers / representatives who currently or will assist patient after discharge: ANMOL BASSETT - MOTHER - [phone] * Verbal permission to speak to the caregivers and representatives has been obtained from the patient. Yes * Community resources currently utilized None * Additional services required to return to the preadmission environment? No * Can the patient safely return to the preadmission environment? Yes * Has this patient been hospitalized within the prior 30 days at any hospital? No Coverage Notice Reviewer: [id number] Bj Crocker Notice Issued Date-Time: 02/26/2019 11:28 Notice Type: Patient Choice Letter Notice Delivered To: Patient Relationship to Patient: Self Tie Puller Name: Delivery Method: HAND - Hand Delivered Daisha Days: Prior Verbal Notification: Recipient Understood Notice: Yes Recipient Signature: Yes Med Rec Note Co-signed by Attending: Coverage Notice Comment: [facility]ia for HH and IV infusion company Last DP export: 02/26/19 11:53 a Patient Name: SARAH BASSETT Page 33877 at 2019 All edits/amendments must be made on the electronic document DICTATION DATE: 02/26/192018 HARDBOARD GRINDER: DOMINGO 02/26/192018 RPT#: [id number] DC DATE:02/26/19 STATUS: DIS IN [facility] [address] [place] [address] END OF REPORT
--- NOTE | 2019-02-27 14:40 | OP ---
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 POSTOPERATIVE DIAGNOSIS: Infection of the great toe MTP joint, status post amputation of the great toe at the MTP joint. PROCEDURE: Excisional debridement with irrigation to include skin, subcutaneous tissue, portions of fat, fascia, muscle and bone as well as foreign bodies. SURGEON: Nataliya Kern MD RECORDS MANAGEMENT ASSOCIATE: PAM Pond INTRAOPERATIVE COMPLICATIONS: None. SUMMARY OF PATHOLOGIC FINDINGS: Unfortunately, the patient was found to have small maggot larvae in his wound. This patient initially presented early in the morning approximately 6 days ago having all but cut his toe completely off after slipping under a lawnmower under the influence of alcohol. His toe was amputated successfully and he left the same day prior to all antibiotics being finished. Upon return to the clinic, his dressings were dirty. He had macerations around the wound and after taking the dressing down, the patient had insect larvae. He was signed up for surgery immediately and sent over. A good cleanout was approved and discussion of how he is going to take care of himself postoperatively included home healthcare with staying at a vacuum cleaner operator residence while he gets healed. He is currently living in his own shop. OPERATIVE SUMMARY IN DETAIL: After obtaining the appropriate preoperative orthopedic surgery consent as well as anesthetic consultation, evaluation and clearance, the patient was brought to the operating room and placed on the operating table in supine position. After adequate general laryngeal mask airway was administered, the patient's right lower extremity was prepped and draped in routine sterile fashion. Serial and sequential removal of all sutures were followed by removal of all insect larvae and then it was copiously irrigated and then a combination of both scalpel, rongeur as well as a knife were used to cut out all nonviable-appearing tissue. At this point, the head of the MTP joint was cleared of all residual articular cartilage in hopes to create a good bleeding environment to allow for antibiotics. After copious irrigation and all nonviable appearing tissue had been removed, the wound was packed with half-inch iodoform gauze. Sterile dressings were applied. The patient was awakened, taken to recovery room in stable condition. All final needle and sponge counts were correct. TRANSINT:[id number] Voice Confirmation ID: [id number] DOCUMENT ID: [id number] OPERATIVE REPORT [id number] SARAH BASSETT MD, NATALIYA SAHNI at 1440 CC: [id number] DICTATION DATE: 02/27/19829 SERVICE EMPLOYEE: 02/27/19 0952 DIS IN 02/26/19 [place] [id number] [place] [address]
== END 2019-02-26 13:05 | disposition home health service (06) | DRG 504 ==
LOC: D.OPS 12:00 → D.M3 16:38 → D.OPS 16:39 → D.M3 16:39 → D.OPS 17:00 → D.M3 02-26 13:05
PROVIDERS: Anesthesiology; Emergency Medicine; ADMIT Orthopaedic Surgery; ATTEND Orthopaedic Surgery
PROC: 0S9N0ZZ Drainage of Left Metatarsal-Phalangeal Joint, Open Approach (ICD-10-PCS; principal; 2019-02-22 17:00)
PROC: 05HC33Z Insertion of Infusion Device into Left Basilic Vein, Percutaneous Approach (ICD-10-PCS; 2019-02-26)
PROC: B54NZZA Ultrasonography of Left Upper Extremity Veins, Guidance (ICD-10-PCS; 2019-02-26)
DX: T87.44 Infection of amputation stump, left lower extremity (principal); F10.230 Alcohol dependence with withdrawal, uncomplicated; F17.213 Nicotine dependence, cigarettes, with withdrawal; E87.1 Hypo-osmolality and hyponatremia; Z89.411 Acquired absence of right great toe; F10.220 Alcohol dependence with intoxication, uncomplicated

== ENCOUNTER → 2019-03-13 07:17 | Outpatient (CLI) | payer MEDICAID ==
[2019-02-26 12:48] VITALS: BMI 32.9
[2019-03-13 07:38] LABS: C-REACTIVE PROTEIN 0.6 mg/dL (0.0-0.9); CREATININE - SERUM 0.7 mg/dL (0.6-1.3)
[2019-03-13 08:52] LABS: ERYTHROCYTE SEDIMENTATION RATE 3 mm/hr (0-20)
[2019-03-13 09:20] LABS: HEMATOCRIT 39.5 % (42.0-54.0); HEMOGLOBIN 13.4 g/dL (13.5-17.5); LYMPHOCYTES 33.1 % (15-50); MCH 31.7 pg (26.0-34.0); MCHC 33.9 g/dL (31.0-37.0); MCV 93.4 fL (80.0-100.0); MEAN PLATELET VOLUME 10.9 fL (7.4-10.4); NEUTROPHILS 47.3 % (40-80); PLATELET COUNT 200 10x3/uL (130-400); RBC 4.23 10x6/uL (4.20-6.10); RDW 14.3 % (11.5-14.5); WBC 4.6 10x3/uL (4.8-10.8)
== END | disposition home or self-care (01) ==
LOC: D.LABREF 07:17
PROVIDERS: ATTEND Orthopaedic Surgery
DX: Z89.421 Acquired absence of other right toe(s) (principal)

== ENCOUNTER → 2019-03-19 16:30 | Outpatient (CLI) | payer MEDICAID ==
[2019-02-26 12:48] VITALS: BMI 32.9
[2019-03-19 17:32] LABS: BASOPHILS 0.4 % (0-2); HEMATOCRIT 43.5 % (42.0-54.0); HEMOGLOBIN 15.1 g/dL (13.5-17.5); LYMPHOCYTES 42.4 % (15-50); MCH 31.5 pg (26.0-34.0); MCHC 34.7 g/dL (31.0-37.0); MCV 90.6 fL (80.0-100.0); MEAN PLATELET VOLUME 11.4 fL (7.4-10.4); MONOCYTES 9.6 % (2-11); NEUTROPHILS 42.6 % (40-80); RDW 13.7 % (11.5-14.5); WBC 4.8 10x3/uL (4.8-10.8)
[2019-03-19 17:34] LABS: PLATELET COUNT 152 10x3/uL (130-400)
[2019-03-19 17:41] LABS: CREATININE - SERUM 0.9 mg/dL (0.6-1.3)
[2019-03-19 18:32] LABS: ERYTHROCYTE SEDIMENTATION RATE 6 mm/hr (0-20)
== END | disposition home or self-care (01) ==
LOC: D.LABREF 16:30
PROVIDERS: ATTEND Orthopaedic Surgery
DX: Z79.2 Long term (current) use of antibiotics (principal); Z89.421 Acquired absence of other right toe(s)